=== PATIENT | male | born 1975 | race Caucasian/White ===

== ENCOUNTER 2018-01-14 13:17 | Emergency (ER) | payer OTHER ==
[~2018-01-14] VITALS: Ht 175.3 cm; Wt 96.6 kg
[2018-01-14] MEDS ORDERED: HYDROCODONE/APAP 5MG-325MG TAB PO ONE (13:45)
[2018-01-14] MEDS ORDERED: ONDANSETRON HCL 4 MG ORAL DISINTEGRATING TAB PO ONE (14:15)
[2018-01-14 14:56] VITALS: BP 150/90
== END 2018-01-14 15:04 | disposition home or self-care (01) ==
LOC: FSED 13:17
DX: M54.5 Low back pain (principal); S39.012A Strain of muscle, fascia and tendon of lower back, initial encounter; M25.552 Pain in left hip; S70.02XA Contusion of left hip, initial encounter; V43.52XA Car driver injured in collision with other type car in traffic accident, initial encounter; Y92.488 Other paved roadways as the place of occurrence of the external cause; K21.9 Gastro-esophageal reflux disease without esophagitis; E78.5 Hyperlipidemia, unspecified
CPT/HCPCS: 72100; 99283

== ENCOUNTER 2018-07-01 15:20 | Observation (INO) | payer OTHER ==
[~2018-07-01] VITALS: Ht 175.3 cm; Wt 94.5 kg
--- NOTE | 2018-07-01 16:14 | Diagnostic Imaging Report ---
Exam: Head CT without contrast History: Possible stroke symptoms Comparison studies: None Technique: Axial images were obtained from the skull base to the vertex. Coronal and sagittal images reconstructed from the axial data. Dose modulation, iterative reconstruction, and/or weight based adjustment of the mA/kV was utilized to reduce the radiation dose to as low as reasonably achievable. Radiation dose: Total DLP: 848 mGy*cm. Estimated effective dose: DLP x 0.015 Intravenous contrast: None Findings: Scalp: No abnormalities. Bones: No fractures, blastic or lytic lesions. Brain sulci: Appropriate for age. Ventricles: Normal in size and configuration. No hydrocephalus. Extra-axial spaces: No masses, no fluid collection. Parenchyma: No abnormal densities. No masses, hemorrhage, acute or chronic vascular insults. Sellar/suprasellar region: No abnormalities. Craniocervical junction: Patent foramen magnum. No Chiari one malformation. IMPRESSION: 1. No no acute intracranial abnormalities. 2. Specifically, no mass, acute hemorrhage or cortical infarct. Brain MRI could further evaluate if there remains persistent concern for acute ischemia. Signed by: Dr. Tai Shankar M.D. on 07/01/2018 4:11 PM
--- OUTSIDE RECORDS SUMMARY | 2018-07-01 16:44 | XMS REPORT ---
Author Author [facility] Organization [facility] Address Unknown Phone Unavailable Care Team Providers Care Location Worker Name Role Phone Moriah MONTANA Unavailable Unavailable Problems This patient has no known problems. Allergies, Adverse Reactions, Alerts This patient has no known allergies or adverse reactions. Medications This patient has no known medications. Results Test Description Test Time Test Comments Text Results Atomic Results Result Comments CT BRAIN WO-HOPD 2018-07-01 16:04:00 [place] [address] Patient Name: JOHANN MCFARLAND MR #: [id number] : 1975 Age/Sex: 43/M Req #: [id number] [facility] Physician: Ordered by: KATTY MONTANA MD Report #: [id number] Location: [facility] Room/Bed: Procedure: [id number] HOPD/CT BRAIN WO-HOPD Exam Date: 07/01/18 Exam Time: 1545 REPORT STATUS: Signed Exam: Head CT without contrast History: Possible stroke symptoms Comparison studies: None Technique: Axial images were obtained from the skull base to the vertex. Coronal and sagittal images reconstructed from the axial data. Dose modulation, iterative reconstruction, and/or weight based adjustment of the mA/kV was utilized to reduce the radiation dose to as low as reasonably achievable. Radiation dose: Total DLP: 848 mGy*cm. Estimated effective dose: DLP x 0.015 Intravenous contrast: None Findings: Scalp: No abnormalities. Bones: No fractures, blastic or lytic lesions. Brain sulci: Appropriate for age. Ventricles: Normal in size and configuration. No hydrocephalus. Extra-axial spaces: No masses, no fluid collection. Parenchyma: No abnormal densities. No masses, hemorrhage, acute or chronic vascular insults. Sellar/suprasellar region: No abnormalities. Craniocervical junction: Patent foramen magnum. No Chiari one malformation. IMPRESSION: 1. No no acute intracranial abnormalities. 2. Specifically, no mass, acute hemorrhage or cortical infarct. Brain MRI could further evaluate if there remains persistent concern for acute ischemia. Signed by: Dr. Sherrill Shankar M.D. on 07/01/2018 4:11 PM Dictated By: SHERRILL SHANKAR MD [id number] Transcribed By: MARITZA on 07/01/18 1611 COPY TO: KATTY MONTANA MD
[2018-07-01] MEDS ORDERED: OMEPRAZOLE40 MG PO (16:57)
[2018-07-01] MEDS ORDERED: AUGMENTIN 875-1 EACH PO (17:14)
[2018-07-01] MEDS ORDERED: IBUPROFEN 600 MG TAB PO ONE (17:30)
[2018-07-01 18:00] VITALS: BP 133/87
[2018-07-01 18:43] VITALS: BP 133/87
[2018-07-01 18:54] VITALS: BP 133/87
[2018-07-01 20:00] VITALS: BP 133/81
[2018-07-01] MEDS: AMOXICILLIN/CLAVULANATE K 875 MG TAB PO SCH (20:15)
[2018-07-01 20:31] LABS: CREATINE KINASE 63 IU/L (30-200)
[2018-07-02] VITALS: BP_SYST 112; BP_SYST 119; BP_DIAS 73; BP_DIAS 81
[2018-07-02] MEDS: SODIUM CHLORIDE 0.9% 1000ML 1,000 ML IV SCH ×2 (01:00→14:53)
[2018-07-02 07:37] VITALS: BP 119/78
[2018-07-02] MEDS: AMOXICILLIN/CLAVULANATE K 875 MG TAB PO SCH ×3 (08:30→18:33)
[2018-07-02] MEDS ORDERED: OMEPRAZOLE 20 MG CAP PO SCH (09:00)
[2018-07-02 10:03] VITALS: BP 119/78
[2018-07-02 11:05] VITALS: BP 127/90
[2018-07-02] MEDS: PROMETHAZINE 25MG/ NS 50ML (IV) IV SCH ×3 (11:30→18:23)
[2018-07-02] MEDS ORDERED: VALPROATE SOD INJ 500 MG in SODIUM CHLORIDE 0.9% 100 ML 100 ML IV SCH (12:30)
--- NOTE | 2018-07-02 13:18 | Consultation ---
DATE OF CONSULTATION: July 02, 2018 NEUROLOGY CONSULT NOTE HISTORY OF PRESENT ILLNESS: Mr. Mcfarland is a 43-year-old right-hand dominant man with past medical history significant for possible hypertriglyceridemia and possible prior stroke versus Morocho's palsy, admitted to [facility] under observation status on July 01, 2018 with symptoms suspicious for a stroke. For the past several days, the patient has experienced a headache which is described as follows: The pain is located behind the right eye and over the right adventist without radiation. At present, the pain is described as a dull aching pain and is rated at 4/10. However, Mr. Mcfarland reports the pain has been severe multiple times over the past several days. Associated with the headache are photophobia, nausea without vomiting, and dizziness which is further described as lightheadedness. In addition, Mr. Mcfarland initially experienced blurred vision associated with the headache. During this past week, Mr. Mcfarland saw his primary care physician regarding his symptoms. His primary care physician referred the patient to an solderer assembly repair to ensure there were no vision abnormalities causing his symptoms. The solderer assembly repair's eye exam was reportedly normal. Mr. Mcfarland was prescribed an oral antibiotic for treatment of a presumed sinus infection. Despite treatment with the oral antibiotic, the patient's symptoms persisted. On the morning of July 01, 2018, the patient awoke with binocular vertical diplopia. Mr. Mcfarland sought evaluation with another solderer assembly repair, who informed the patient his eyes were "misaligned." The solderer assembly repair advised the patient to proceed to the emergency center for further evaluation of his symptoms. Mr. Mcfarland followed this advise and presented to the emergency center at [facility]. Upon arrival in the emergency center, the patient was afebrile with a blood pressure of 134/86 mmHg and a pulse of 89 beats per minute. His neurological examination was documented as being nonfocal. A CT of the brain without contrast was performed while the patient was in the emergency center. This study did not reveal evidence of recent large territorial ischemia or hemorrhage. Therefore, Mr. Mcfarland was admitted to [facility] under observation status for further evaluation and treatment of his symptoms. Mr. Mcfarland endorses a prior history of "frequent sinus headaches." The patient has never been diagnosed with migraines or another primary headache disorder. Mr. Mcfarland has a niece who has migraines. REVIEW OF SYSTEMS: Abdominal pain, blurred vision, double vision, headache, photophobia, nausea, and dizziness which is further described as lightheadedness. Otherwise, a 12-point review of systems is negative. PAST MEDICAL HISTORY: Possible hypertriglyceridemia, gastroesophageal reflux disease, prior history of stroke versus Morocho's palsy. PAST SURGICAL HISTORY: None. PAST HOSPITALIZATIONS: Facial weakness 2 years ago. FAMILY MEDICAL HISTORY: The patient's paternal and maternal grandparents are . The paternal grandfather from a stroke. The paternal grandmother had diabetes mellitus. The maternal grandfather from coronary artery disease. The maternal grandmother's medical history is unknown. Both of Mr. Mcfarland's parents are alive. His father has had a stroke. His mother has fibromyalgia and restless leg syndrome. Mr. Mcfarland has 3 siblings, all brothers, all of whom are living. All 3 brothers have hypertriglyceridemia. One brother has Crohn's disease. A second brother has schizophrenia. The patient has no biological children. SOCIAL HISTORY: Mr. Mcfarland is . He works as an administrative office specialist. The patient does not report current or prior tobacco or recreational drug use. He endorses rare alcohol consumption. HOME MEDICATIONS 1. Omeprazole 40 mg by mouth daily. 2. Augmentin 875 mg by mouth twice daily. ALLERGIES: PREDNISONE CAUSES ABDOMINAL CRAMPING. SHELLFISH. NO KNOWN ALLERGIES TO LATEX. HOWEVER, MR. MCFARLAND ENDORSES A REACTION TO ADHESIVE TAPE. THE PATIENT DOES NOT REPORT AN ALLERGY TO IODINE OR OTHER CONTRAST MATERIALS. PHYSICAL EXAMINATION VITAL SIGNS: Height 69 inches, weight 270 pounds, BMI 32.0 kg/m2. Blood pressure 119/78 mmHg, pulse 76 beats per minute, respiratory rate 18 breaths per minute, oxygen saturation 98% on room air. GENERAL: The patient is awake and alert, does not appear distressed. Obese. HEENT: Normocephalic, atraumatic. Pupils are equal, round, and reactive to light. Moist mucous membranes. NECK: Supple. No appreciable thyromegaly. No appreciable carotid bruits. CARDIOVASCULAR: S1, S2, regular rate and rhythm. No murmurs, rubs, or gallops. RESPIRATORY: Clear to auscultation bilaterally. No wheezes, rhonchi, or rales. EXTREMITIES: The skin is warm and dry. No clubbing, cyanosis, or edema. The posterior tibial and dorsalis pedis pulses are 2+ and symmetric. SKIN: No rashes or lesions. NEUROLOGIC: Memory/Attention: The patient is awake and alert, oriented to person, place, time, and situation. Cranial Nerves: Cranial nerve I - not tested. Cranial nerve II, III, IV, and - pupils are equal and round, react briskly to light (from 4 mm to 2 mm). Extraocular movements are intact except as follows: Partial left cranial nerve palsy. No nystagmus. Cranial nerve V - sensation to light touch and pinprick is intact in the bilateral V1 through V3 distributions. Strength of the temporalis and masseter muscles is within normal limits. Cranial nerve VII - the face is symmetric as are all facial movements. Strength is within normal limits. Cranial nerve VIII - hearing is intact to finger rub bilaterally. Cranial nerve IX, X - the soft palate elevates equally and symmetrically. Cranial nerve XI - normal strength of the bilateral sternocleidomastoid and trapezius muscles. Cranial nerve XII - the tongue protrudes midline and moves symmetrically from side to side. Strength: Bulk is normal. Strength is 5/5 in the bilateral deltoids, biceps, triceps, wrist flexors and extensors, finger flexors and extensors, intrinsic hand muscles, hip flexors, knee flexors and extensors, ankle dorsiflexion and plantarflexion, and intrinsic foot muscles. Tone is normal. DTRs: Deep tendon reflexes are 2+ and symmetric at the triceps, biceps, brachioradialis, patellas, and Achilles. Plantar responses are flexor bilaterally. Sensation: Sensation is intact to light touch and pinprick in both arms and both legs. Cerebellar: Ylnuns-olgp-uxqfkt and heel-naqvi movements are intact without dysmetria or other impairment. Gait: Deferred. Speech: Spontaneous speech is normal without appreciable dysarthria or aphasia. Repetition is intact. Involuntary Movements: None. Pronator Drift: None. LABORATORY DATA: Cardiac enzymes are negative. DIAGNOSTIC STUDIES 1. Electrocardiogram, July 01, 2018: Normal sinus rhythm at 84 beats per minute. 2. CT of the brain without contrast, July 01, 2018: On my review, there is no evidence of recent large territorial ischemia, hemorrhage, mass, or mass effect. No remote vascular insults are seen. Cerebral volume is appropriate for age. There are no findings compatible with chronic small vessel ischemic disease. ASSESSMENT AND PLAN: Mr. Mcfarland is a 43-year-old right-hand dominant man with past medical history significant for possible hypertriglyceridemia, gastroesophageal reflux disease, and possible stroke versus Morocho's palsy, admitted to [facility] on July 01, 2018 with a 1-week history of headaches and blurred vision and a 1-day history of binocular vertical diplopia. Other than a partial left cranial nerve palsy, the patient's neurological examination is nonfocal. His laboratory data and other diagnostic studies have been reviewed and are documented above. Mr. Mcfarland is admitted to [facility] for symptoms suspicious for a stroke. Indeed, a stroke is a possible cause for the patient's cranial nerve palsy; however, Mr. Mcfarland lacks many of the vascular risk factors for cerebrovascular disease. In addition, the patient has experienced a unilateral headache with associated photophobia, nausea without vomiting, and dizziness over the past week. Therefore, another possible diagnosis is migraine without aura, complicated by a cranial nerve palsy. RECOMMENDATIONS 1. An MRI of the brain without contrast will be ordered for further evaluation. This order will be placed stat, so the study may be done over the weekend. 2. Normal saline at 125 mL per hour intravenously will be prescribed. 3. Promethazine 25 mg intravenously every 6 hours x2 doses will be prescribed. 4. Valproate 500 mg intravenously every 6 hours x2 doses will be prescribed. 5. Defer treatment of the remaining medical comorbidities to the primary and other services following the patient. Thank you for this consultation. I will continue to follow the patient while he remains in the hospital. TIME SPENT: 70 minutes. Job#: [id number] JUAN
--- NOTE | 2018-07-02 14:02 | Diagnostic Imaging Report ---
History: TIA, double vision Comparison studies: Head CT on 07/01/2018 Technique: Sagittal T2; axial DWI, FLAIR, MPGR, T1, Coronal FLAIR. Intravenous contrast: None Findings: Scalp: Normal in signal . No masses . Bone marrow: Normal in signal intensity. Extra-axial: No masses or fluid collections. Brain sulci: Appropriate for age. Ventricles: Normal in size . No hydrocephalus . Parenchyma: No abnormal signal intensities. No masses, hemorrhage, acute or chronic cortical ischemic insults. Suprasellar region: No abnormalities. Craniocervical junction: No abnormalities. Patent foramen magnum. No Chiari one malformation. Vessels: Normal flow-voids in the arteries and sinuses. IMPRESSION: 1. No abnormalities. 2. No changes when compared to the head CT on 07/01/2018 Signed by: Dr. Sharath Vidal M.D. on 07/02/2018 1:59 PM
[2018-07-02 15:16] VITALS: BP 121/84
[2018-07-02] MEDS ORDERED: AMOXICILLIN/CLAVULANATE K 875 MG TAB PO SCH (17:00)
[2018-07-02 20:00] VITALS: BP 119/78
[2018-07-03] VITALS: BP 120/74
[2018-07-03 03:54] LABS: BASOPHILS % 0.2 % (0.0-1.0); EOSINOPHILS # (AUTO) 0.2 (0.0-0.4); EOSINOPHILS % 2.1 % (0.0-6.0); HEMATOCRIT 41.6 % (38.2-49.6); HEMOGLOBIN 14.8 g/dL (14.0-18.0); LYMPHOCYTES # (AUTO) 2.4 (1.0-3.2); LYMPHOCYTES % 29.6 % (18.0-39.1); MEAN CORPUSCULAR HEMOGLOBIN 29.8 pg (28-32); MEAN CORPUSCULAR HGB CONC 35.6 g/dL (31-35); MEAN CORPUSCULAR VOLUME 83.7 fL (81-99); MONOCYTES # (AUTO) 0.8 (0.2-0.8); MONOCYTES % 9.6 % (4.4-11.3); NEUTROPHILS # (AUTO) 4.7 (2.1-6.9); NEUTROPHILS % 57.6 % (38.7-80.0); PLATELET COUNT 155 x10e3/uL (140-360); RED BLOOD COUNT 4.97 x10e6/uL (4.3-5.7); RED CELL DISTRIBUTION WIDTH 12.5 % (11.7-14.4)
[2018-07-03 04:16] LABS: ALANINE AMINOTRANSFERASE 40 IU/L (0-55); ALBUMIN 3.8 g/dL (3.5-5.0); ALKALINE PHOSPHATASE 63 IU/L (40-150); ANION GAP 18.1 mmol/L (8-16); BILIRUBIN,DIRECT 0.1 mg/dL (0.0-0.5); BLOOD UREA NITROGEN 14 mg/dL (7-26); BUN/CREATININE RATIO 15 (6-25); CARBON DIOXIDE 19 mmol/L (22-29); CHLORIDE 102 mmol/L (98-107); CHOL/HDL RATIO 11.3 (3.9-4.7); CHOLESTEROL 270 MD/DL (0-199); CREATININE, SERUM 0.94 mg/dL (0.72-1.25); EST GLOMERULAR FILTRATION RATE > 60 ML/MIN (60-); GLUCOSE 91 mg/dL (74-118); HDL CHOLESTEROL 24 MG/DL (40-60); POTASSIUM 4.1 mmol/L (3.5-5.1); SODIUM 135 mmol/L (136-145); TRIGLYCERIDES 1013 MG/DL (0-149)
[2018-07-03 04:37] LABS: THYROID STIMULATING HORMONE 0.899 uIU/mL (0.350-4.940)
[2018-07-03] MEDS: PROMETHAZINE 25MG/ NS 50ML (IV) IV SCH ×2 (05:34)
[2018-07-03 07:00] VITALS: BP 120/71
[2018-07-03 07:20] VITALS: BP 120/71
[2018-07-03] MEDS ORDERED: PANTOPRAZOLE SOD 40 MG TABEC PO SCH (07:30)
[2018-07-03] MEDS: AMOXICILLIN/CLAVULANATE K 875 MG TAB PO SCH (08:52)
[2018-07-03] MEDS ORDERED: LIPITOR20 MG PO (08:58)
[2018-07-03 11:47] VITALS: BP 130/91
--- NOTE | 2018-07-03 17:54 | Discharge Summary ---
ADMISSION DIAGNOSES 1. Headache/complex migraine. 2. Transient ischemic attack and stroked ruled out. 3. Hyperlipidemia. DISCHARGE DIAGNOSES 1. Headache/complex migraine. 2. Transient ischemic attack and stroked ruled out. 3. Hyperlipidemia. HISTORY: Patient has a history of hyperlipidemia and frequent headaches. SURGICAL HISTORY: Patient denies surgical history. FAMILY HISTORY: Patient admits to having a family member with migraines. SOCIAL HISTORY: Patient denies tobacco, alcohol and illicit drug use. HOSPITAL COURSE: A 43-year-old male admitted to [facility] after having headache over the last few days. The pain was located behind the right eye and over the right confucianism without radiation. Mr. Blue was diagnosed with a presumed sinus infection and prescribed antibiotics. Despite the antibiotics, the symptoms continued. According to the patient's tobacco hanger, the eye exam was normal, but he might need glasses. On admission, the patient had an MRI and a CT scan of the brain, which were both negative. He was given promethazine IV 6 hours times 2 doses and valproic acid 2 doses per neuro. The patient's headache resolved, but he still complained of double vision. Per neurology, the patient can discharge home and follow up with tobacco hanger. He was prescribed Lipitor at the time of discharge. He was taking fenofibrate, but admits to being noncompliant. Patient's triglyceride was 1013, cholesterol is 270, HDL is 24. Patient will discharge home and follow up with primary care and tobacco hanger as discussed. Vital signs stable. Patient afebrile. Neuro agrees to discharge plan. Patient will discharge home today. DICTATED BY KARO CONTRERAS NP MAIA FAIRBANKS MD Job#: [id number] [place]
[2018-07-03] MEDS ORDERED: ATORVASTATIN 20 MG TAB PO SCH (21:00)
== END 2018-07-03 12:00 | disposition home or self-care (01) ==
LOC: FSED 15:20 → ERHOLD 16:41 → IMCU 17:55
PROVIDERS: ADMIT Internal Medicine; ATTEND Internal Medicine
DX: G43.109 Migraine with aura, not intractable, without status migrainosus (principal); H49.22 Sixth [abducent] nerve palsy, left eye; E87.1 Hypo-osmolality and hyponatremia; E78.5 Hyperlipidemia, unspecified; K21.9 Gastro-esophageal reflux disease without esophagitis; Z82.3 Family history of stroke; Z91.013 Allergy to seafood; Z88.8 Allergy status to other drugs, medicaments and biological substances; Z91.09 Other allergy status, other than to drugs and biological substances
CPT/HCPCS: 36415 ×2; 70450; 70551; 80048; 80053; 80061; 80076; 81003; 82550; 82553; 84443; 84484; 85025 ×2; 93005 ×2; 96361; 97139; 99284; G0378 ×3; J2550 ×2; J7030 ×2; S0164; 96360